=== PATIENT | female | born 1955 | race Caucasian/White ===

== ENCOUNTER 2019-03-05 15:26 | Emergency (ER) | payer BC ==
[2019-03-05] MEDS ORDERED: NS 0.9% 1000 ML** 1,000 ML IV ONE (16:20)
[2019-03-05 16:34] VITALS: BP 207/108
--- NOTE | 2019-03-05 16:38 | UC ---
Headache HPI - HPI Summary HPI Summary: 64-year-old female who has a history of hypertension that is well controlled with lisinopril and she states her blood pressure is usually 120/70. She was in a staff meeting at work which was an enjoyable staff meeting with no stress. She went to the bathroom and when she stood up from the toilet after urinating she had a sudden onset of a severe headache which she describes as the worst headache she's ever had. She had some nausea with that. She had no neurologic deficits but states she felt "kind of weakish". As we are speaking she is awake and alert and answering appropriately with no visible deficits. - History Of Current Complaint Chief Complaint: UCHeadache Stated Complaint: ELEVATED BLOOD PRESSURE/HEADACHE Time Seen by Provider: 03/05/19 15:48 Hx Obtained From: Patient ?: No Onset/Duration: Sudden Onset Onset Of Symptoms: Sudden Initially Headache Was: "Worst Headache Ever", Initial Pain Scale(0-10)= - 10 Currently Pain Is: Mild - Patient describes the pain now more as like a balloon inside of her head that is pressing outward against everything., Moderate Pain Intensity: 3 Timing: Constant Character: Pressure Location of Headache: Diffuse Aggravating Factor(s): Nothing Allevating Factor(s): Nothing Associated Signs And Symptoms: Positive: Nausea - Allergies/Home Medications Allergies/Adverse Reactions: Allergies Allergy/AdvReac Type Severity Reaction Status Date / Time nitroglycerin Allergy Severe Low BP and Verified 03/05/19 15:56 Asystole Sulfa (Sulfonamide Allergy Intermediate Hives Verified 03/05/19 15:56 Antibiotics) ciprofloxacin [From Cipro] AdvReac Intermediate Headache Verified 03/05/19 15:56 amitriptyline AdvReac Unknown Unknown Verified 03/05/19 15:56 Reaction Details Home Medications: Home Medications Calcium Plus D 600/400 Iu 1 tab DAILY 03/05/19 [History Confirmed 03/05/19] Montelukast Sodium TAB* [Singulair 10 MG TAB*] 1 tab BEDTIME 03/05/19 [History Confirmed 03/05/19] Pramipexole TAB* [Mirapex TAB*] 0.125 mg PO BEDTIME 03/05/19 [History Confirmed 03/05/19] Ranitidine TAB (NF) [Zantac TAB (NF)] 150 mg PO BID 03/05/19 [History Confirmed 03/05/19] PMH/Surg Hx/FS Hx/Imm Hx - Additional Past Medical History Additional PMH: History of restless leg syndrome. Previously Healthy: Yes Cardiovascular History: Hypertension GI/ History: Gastroesophageal Reflux Psychological History: Anxiety - Surgical History Surgical History: Yes Surgery Procedure, Year, and Place: exploratory laparoscopy. 2 D & C's - Family History Known Family History: Positive: Non-Contributory - Social History Occupation: Employed Full-time Alcohol Use: Occasionally Substance Use Type: None Smoking Status (MU): Never Smoked Tobacco - Immunization History Most Recent Tetanus Shot: 08/29/11 Review of Systems All Other Systems Reviewed And Are Negative: Yes Constitutional: Positive: Negative Skin: Positive: Negative Eyes: Positive: Negative ENT: Positive: Negative Respiratory: Positive: Negative Cardiovascular: Positive: Negative Gastrointestinal: Positive: Negative Genitourinary: Positive: Negative Motor: Positive: Weakness - Patient states she did not have any "weakish" following the sudden onset of headache. Neurovascular: Positive: Negative Musculoskeletal: Positive: Negative Neurological: Positive: Headache - Patient describes this as a worse headache she is ever had. Psychological: Positive: Negative Is Patient Immunocompromised?: No Physical Exam Triage Information Reviewed: Yes Appearance: Well-Appearing, No Pain Distress, Well-Nourished Vital Signs: Initial Vital Signs Temp 97.7 F 03/05/19 15:44 Pulse 66 03/05/19 15:44 Resp 16 03/05/19 15:44 BP 188/98 03/05/19 15:44 Pulse Ox 100 03/05/19 15:44 Vital Signs Reviewed: Yes Eyes: Positive: Conjunctiva Clear - PERRLA, EOMI, negative drift ENT: Positive: Hearing grossly normal, Pharynx normal, TMs normal, Uvula midline Neck: Positive: Supple, Nontender, No Lymphadenopathy Respiratory: Positive: Lungs clear, Normal breath sounds, No respiratory distress, No accessory muscle use Cardiovascular: Positive: RRR, No Murmur, Pulses Normal, Brisk Capillary Refill Abdomen Description: Positive: Nontender, No Organomegaly, Soft. Negative: CVA Tenderness (R), CVA Tenderness (L), Distended, Guarding, Hepatomegaly, Splenomegaly Bowel Sounds: Positive: Present Musculoskeletal: Positive: Strength Intact, ROM Intact - Good peripheral pulses neuro sensation and capillary refill, good arm and leg strength against resistance. Neurological: Positive: Alert, Muscle Tone Normal - Romberg is negative, good heel-to-toe forward and backward, good [id number] bilaterally, good finger to nose bilaterally, normal dystidiokinesis, cranial nerves II through XII are intact. Reflexes +2 at the knee. Psychological Exam: Normal Skin Exam: Normal Headache Course/Dx - Course Course Of Treatment: Because of the sudden onset of the worst headache she's ever had, the patient is being transferred by ambulance to [facility]. An IV was started here. She is awake, alert, stable and answering appropriately. She continues to have elevated blood pressure which is not her norm, although she does have a history of well-controlled hypertension on lisinopril. Neurologically she is stable. Transfer center was notified at 1630. Patient was transferred via ambulance at 1645. - Differential Dx/Diagnosis Provider Diagnosis: Sudden onset of severe headache Discharge - Sign-Out/Discharge Documenting (check all that apply): Patient Departure All imaging exams completed and their final reports reviewed: No Studies - Discharge Plan Condition: Stable Disposition: TRANS HIGHER LVL OF CARE FAC Referrals: Jesse Mulligan MD [Primary Care Provider] - - Billing Disposition and Condition Condition: STABLE Disposition: Trans Higher Lvl of Care Fac
== END 2019-03-05 16:35 | disposition short-term general hospital (02) ==
LOC: UCCORT 15:26
DX: R51 Headache (principal); R11.0 Nausea; G25.81 Restless legs syndrome; I10 Essential (primary) hypertension; K21.9 Gastro-esophageal reflux disease without esophagitis; Z88.1 Allergy status to other antibiotic agents; Z88.0 Allergy status to penicillin; Z88.8 Allergy status to other drugs, medicaments and biological substances
CPT/HCPCS: 93005; 99213; G0463